=== PATIENT | male | born 1990 | race Caucasian/White ===

== ENCOUNTER 2018-08-20 01:45 | Emergency (ER) | payer MEDICAID, MEDICARE, OTHER, SELFPAY ==
[~2018-08-20] VITALS: Ht 188 cm; Wt 71.9 kg
--- NOTE | 2018-08-20 01:55 | NUR ---
FSBS IN TRIAGE "HI"
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
[2018-08-20] MEDS ORDERED: INSU100V5 SQ-INSULIN (02:10)
[2018-08-20] MEDS ORDERED: INSULIN NPH (02:10)
[2018-08-20] MEDS ORDERED: INSU100V8 SQ (02:10)
--- NOTE | 2018-08-20 02:25 | NUR ---
iv site started, iv fluids infusing Addendum: 08/20/18 at 0225 by LOI provided pt with urine cup, pt stated ' i can't pee right now, i need more fluids"
[2018-08-20 02:30] LABS: BASOPHILS # (AUTO) 0.02 x10^3/uL (0-0.1); BASOPHILS % (AUTO) 0 % (0-1); EOSINOPHILS # (AUTO) 0.06 x10^3/uL (0-0.4); EOSINOPHILS % (AUTO) 1 % (1-7); LYMPHOCYTES # (AUTO) 1.56 x10^3/uL (1-3.4); LYMPHOCYTES % (AUTO) 25 % (22-44); MD NO; MEAN CORPUSCULAR HEMOGLOBIN 31.3 pg (27.5-34.5); MEAN CORPUSCULAR HGB CONC 33.2 g/dL (33.2-36.2); MEAN CORPUSCULAR VOLUME 94.3 fL (81-97); MEAN PLATELET VOLUME 9.2 fL (7.4-10.4); MONOCYTES # (AUTO) 0.38 x10^3/uL (0.2-0.8); MONOCYTES % (AUTO) 6 % (2-9); NEUTROPHILS # (AUTO) 4.18 x10^3/uL (1.8-6.8); NEUTROPHILS % (AUTO) 67 % (42-75); PLATELET COUNT 277 x10^3/uL (130-400); RED BLOOD COUNT 4.74 x10^6/uL (4.38-5.82); RED CELL DISTRIBUTION WIDTH 13.3 % (9.4-14.8)
[2018-08-20] MEDS ORDERED: SODIUM CHLORIDE 0.9% 1,000ML IVBOLUS ONE ×2 (02:30→03:00)
[2018-08-20 02:36] LABS: PH, VENOUS 7.372 pH (7.320-7.420)
[2018-08-20 02:37] LABS: ALANINE AMINOTRANSFERASE 184 U/L (12-78); ALBUMIN 3.5 g/dL (3.4-5.0); ANION GAP 10 mmol/L (5-15); CALCIUM 8.5 mg/dL (8.5-10.1); CHLORIDE 99 mmol/L (98-107); CREATININE 1.15 mg/dL (0.7-1.3)
[2018-08-20 02:39] LABS: ALKALINE PHOSPHATASE 143 U/L (45-117); BILIRUBIN,TOTAL 0.5 mg/dL (0.2-1.0); TOTAL PROTEIN 7.6 g/dL (6.4-8.2)
[2018-08-20] MEDS ORDERED: INSULIN SINGLE DOSE, ER SQ-INSULIN ONE (02:58)
[2018-08-20] MEDS ORDERED: INSULIN REGULAR 100 UNITS/ML, 3ML VIAL IVPush ONE (03:00)
--- NOTE | 2018-08-20 03:02 | NUR ---
pt sitting up on gurney, denies needs, iv fluids infusing, medicate dper mar. monitors in place, call light within reach
[2018-08-20 03:09] LABS: ACETONE, SERUM Trace (10mg/dL) mg/dL (Negative)
[2018-08-20 03:53] VITALS: BP 140/78
--- NOTE | 2018-08-20 04:01 | NUR ---
pt resting on rick, fsbs-[id number], erp updated, monitors in place, call light within reach
--- NOTE | 2018-08-20 04:07 | NUR ---
PROVIDED PT WITH CRACKERS, SNACK
[2018-08-20] MEDS ORDERED: SULFAMETH./TRIMETHOPRIM DS 800MG/160MG TABLET ONE (04:12)
[2018-08-20] MEDS ORDERED: CEPHALEXIN 500 MG CAPSULE ONE (04:12)
--- NOTE | 2018-08-20 05:05 | NUR ---
PER ERP PT OK FOR D/C, DO NOT NEED URINE SAMPLE OR REPEAT BLOOD SUGAR
== END 2018-08-20 05:14 | disposition home or self-care (01) ==
LOC: ED 03:32
DX: E10.65 Type 1 diabetes mellitus with hyperglycemia (principal); F17.200 Nicotine dependence, unspecified, uncomplicated; Z86.19 Personal history of other infectious and parasitic diseases
CPT/HCPCS: 36415; 80053; 82010; 82803; 85025; 96374; 99283; J1815; J7030

== ENCOUNTER 2018-08-21 18:24 | Emergency (ER) | payer MEDICAID, MEDICARE ==
[~2018-08-21] VITALS: Ht 182.9 cm; Wt 69.1 kg
[~2018-08-21 18:24] MED LIST: INSU100V5 SQ-INSULIN; INSU100V8 SQ; INSULIN NPH
--- NOTE | 2018-08-21 19:40 | NUR ---
FSBS DONE, GLUCOMETER READS CARRILLO VAUGHAN AWARE AND LABS ORDERED. PT TAKING PO FLUIDS.
[2018-08-21 21:37] LABS: PH, VENOUS 7.396 pH (7.320-7.420)
[2018-08-21 21:40] LABS: BASOPHILS # (AUTO) 0.04 x10^3/uL (0-0.1); BASOPHILS % (AUTO) 1 % (0-1); EOSINOPHILS # (AUTO) 0.06 x10^3/uL (0-0.4); EOSINOPHILS % (AUTO) 1 % (1-7); LYMPHOCYTES % (AUTO) 22 % (22-44); MD NO; MEAN CORPUSCULAR HEMOGLOBIN 31.4 pg (27.5-34.5); MEAN CORPUSCULAR HGB CONC 33.1 g/dL (33.2-36.2); MEAN CORPUSCULAR VOLUME 94.8 fL (81-97); MEAN PLATELET VOLUME 9.2 fL (7.4-10.4); MONOCYTES # (AUTO) 0.58 x10^3/uL (0.2-0.8); MONOCYTES % (AUTO) 8 % (2-9); NEUTROPHILS # (AUTO) 4.99 x10^3/uL (1.8-6.8); NEUTROPHILS % (AUTO) 69 % (42-75); PLATELET COUNT 285 x10^3/uL (130-400); RED BLOOD COUNT 4.96 x10^6/uL (4.38-5.82); RED CELL DISTRIBUTION WIDTH 13.2 % (9.4-14.8)
[2018-08-21 21:53] LABS: ALANINE AMINOTRANSFERASE 188 U/L (12-78); ANION GAP 9 mmol/L (5-15); CALCIUM 9.1 mg/dL (8.5-10.1); CHLORIDE 92 mmol/L (98-107); CREATININE 1.19 mg/dL (0.7-1.3)
[2018-08-21 21:56] LABS: ALKALINE PHOSPHATASE 162 U/L (45-117); BILIRUBIN,TOTAL 0.9 mg/dL (0.2-1.0); TOTAL PROTEIN 8.2 g/dL (6.4-8.2)
--- NOTE | 2018-08-21 21:57 | NUR ---
NO ANSWER WHEN CALLED FOR REPEAT VS
[2018-08-21 21:59] VITALS: BP 149/97
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
[2018-08-21] MEDS ORDERED: INSULIN SINGLE DOSE, ER SQ-INSULIN ONE (22:30)
[2018-08-21] MEDS ORDERED: SODIUM CHLORIDE 0.9% 1,000ML IVBOLUS ONE (22:30)
[2018-08-21] MEDS ORDERED: INSULIN REGULAR 100 UNITS/ML, 3ML VIAL IV ONE (22:30)
--- NOTE | 2018-08-21 22:35 | NUR ---
PT MEDICATED PER EMAR. JOHANNYN.
--- NOTE | 2018-08-21 23:32 | NUR ---
PT ELOPED AT THIS TIME. PT DID NOT WANT TO WAIT FOR DC PAPERWORK. PT REPORTS HE WANTS SOMETHING AND NEEDS TO BE SOMEWHERE AT THIS TIME. PT ENCOURAGED TO STAY AND WAIT FOR HIS INSULIN. PT REPORTS ILL JUST COME BACK FOR IT LATER. PT SHOWN WAY OUT AND REFUSED TO SIGN AMA AT THIS TIME.
--- NOTE | 2018-08-21 23:34 | NUR ---
PT PULLED OUT PIV AND WAS FOUND IN ROOM.
== END 2018-08-21 23:35 | disposition left against medical advice (07) ==
LOC: ED 21:23
DX: E10.65 Type 1 diabetes mellitus with hyperglycemia (principal); Z72.9 Problem related to lifestyle, unspecified
CPT/HCPCS: 36415; 80053; 82803; 85025; 96374; 99283; J7030

== ENCOUNTER 2018-09-04 23:25 | Emergency (ER) | payer MEDICAID, MEDICARE ==
[~2018-09-04] VITALS: Ht 188 cm; Wt 67.4 kg
[2018-09-05] MEDS ORDERED: SODIUM CHLORIDE 0.9% 1,000ML IVBOLUS ONE (02:00)
[2018-09-05 02:05] LABS: BASOPHILS # (AUTO) 0.05 x10^3/uL (0-0.1); BASOPHILS % (AUTO) 1 % (0-1); EOSINOPHILS # (AUTO) 0.15 x10^3/uL (0-0.4); EOSINOPHILS % (AUTO) 2 % (1-7); LYMPHOCYTES # (AUTO) 2.18 x10^3/uL (1-3.4); LYMPHOCYTES % (AUTO) 23 % (22-44); MD NO; MEAN CORPUSCULAR HEMOGLOBIN 31.1 pg (27.5-34.5); MEAN CORPUSCULAR HGB CONC 33.7 g/dL (33.2-36.2); MEAN CORPUSCULAR VOLUME 92.5 fL (81-97); MONOCYTES # (AUTO) 0.58 x10^3/uL (0.2-0.8); MONOCYTES % (AUTO) 6 % (2-9); NEUTROPHILS # (AUTO) 6.38 x10^3/uL (1.8-6.8); NEUTROPHILS % (AUTO) 68 % (42-75); PLATELET COUNT 290 x10^3/uL (130-400); RED BLOOD COUNT 5.26 x10^6/uL (4.38-5.82)
[2018-09-05 02:17] LABS: ALANINE AMINOTRANSFERASE 185 U/L (12-78); ANION GAP 8 mmol/L (5-15); CALCIUM 9.5 mg/dL (8.5-10.1); CHLORIDE 90 mmol/L (98-107); CREATININE 1.18 mg/dL (0.7-1.3)
[2018-09-05 02:20] LABS: ALKALINE PHOSPHATASE 163 U/L (45-117); BILIRUBIN,TOTAL 0.8 mg/dL (0.2-1.0); TOTAL PROTEIN 8.5 g/dL (6.4-8.2)
[2018-09-05] MEDS ORDERED: INSULIN REGULAR 100 UNITS/ML, 3ML VIAL SQ-INSULIN ONE (02:30)
[2018-09-05] MEDS ORDERED: INSULIN SINGLE DOSE, ER SQ-INSULIN ONE ×2 (02:39→02:41)
[2018-09-05 02:42] LABS: ACETONE, SERUM Moderate(40mg/dL) mg/dL (Negative)
[2018-09-05 04:57] VITALS: BP 121/74
== END 2018-09-05 04:59 | disposition home or self-care (01) ==
LOC: ED 09-05 02:30
DX: E11.65 Type 2 diabetes mellitus with hyperglycemia (principal); E86.0 Dehydration; Z72.9 Problem related to lifestyle, unspecified; F17.200 Nicotine dependence, unspecified, uncomplicated
CPT/HCPCS: 36415; 80053; 82010; 82962; 83690; 85025; 96360; 96372; 99283; J7030

== ENCOUNTER 2018-09-19 19:35 | Inpatient (IN) | payer MEDICARE, MEDICAID ==
[~2018-09-19] VITALS: Ht 180.3 cm; Wt 72.6 kg
[2018-09-23 08:58] VITALS: BP 127/83
== END 2018-09-23 09:20 | disposition home or self-care (01) | DRG 871 ==
LOC: ED 19:51 → 4WST 22:09 → DCLOUNGE 09-23 09:03
PROVIDERS: ADMIT Internal Medicine; ATTEND Internal Medicine
DX: A41.9 Sepsis, unspecified organism (principal); J15.9 Unspecified bacterial pneumonia; J96.01 Acute respiratory failure with hypoxia; J91.8 Pleural effusion in other conditions classified elsewhere; R65.20 Severe sepsis without septic shock; D50.9 Iron deficiency anemia, unspecified; E10.65 Type 1 diabetes mellitus with hyperglycemia; E86.0 Dehydration; F11.90 Opioid use, unspecified, uncomplicated; F15.90 Other stimulant use, unspecified, uncomplicated; Z59.0 Homelessness; Z88.1 Allergy status to other antibiotic agents; Z88.8 Allergy status to other drugs, medicaments and biological substances; Z91.19 Patient's noncompliance with other medical treatment and regimen; Z72.0 Tobacco use; Z71.6 Tobacco abuse counseling
CPT/HCPCS: 36415; 71046; 80048; 80053; 80076; 80307; 82962; 83036; 83605; 84145; 85025; 87040; 87070; 87184; 87205; 93005; 96374; G0378; J1650; J1956; J1815; J7030

== ENCOUNTER 2019-01-31 04:15 | Emergency (ER) | payer MEDICARE, MEDICAID ==
[~2019-01-31] VITALS: Ht 188 cm; Wt 75.0 kg
[~2019-01-31 04:15] MED LIST changes: +LEVO500T47 PO
[2019-01-31] MEDS ORDERED: SODIUM CHLORIDE FLUSH 10ML SYR IVF ONE (05:30)
[2019-01-31] MEDS ORDERED: MEROPENEM 1 GM in SODIUM CHLORIDE 0.9% 100 ML IVPB ONE (05:30)
[2019-01-31] MEDS ORDERED: DIPH,PERTUSS(ACELL),TET VAC/PF 0.5 ML IM-VACC ONE ×2 (05:30→05:36)
[2019-01-31 06:12] LABS: BASOPHILS # (AUTO) 0.03 x10^3/uL (0-0.1); BASOPHILS % (AUTO) 0 % (0-1); EOSINOPHILS # (AUTO) 0.16 x10^3/uL (0-0.4); EOSINOPHILS % (AUTO) 1 % (1-7); LYMPHOCYTES % (AUTO) 16 % (22-44); MD NO; MEAN CORPUSCULAR HEMOGLOBIN 31.7 pg (27.5-34.5); MEAN CORPUSCULAR HGB CONC 33.3 g/dL (33.2-36.2); MEAN CORPUSCULAR VOLUME 95.1 fL (81-97); MEAN PLATELET VOLUME 9.4 fL (7.4-10.4); MONOCYTES # (AUTO) 0.66 x10^3/uL (0.2-0.8); MONOCYTES % (AUTO) 6 % (2-9); NEUTROPHILS # (AUTO) 8.92 x10^3/uL (1.8-6.8); NEUTROPHILS % (AUTO) 77 % (42-75); PLATELET COUNT 279 x10^3/uL (130-400); RED BLOOD COUNT 4.51 x10^6/uL (4.38-5.82)
[2019-01-31 06:34] LABS: ANION GAP 6 mmol/L (5-15); CALCIUM 8.7 mg/dL (8.5-10.1); CHLORIDE 102 mmol/L (98-107)
[2019-01-31 06:39] LABS: ALANINE AMINOTRANSFERASE 108 U/L (12-78); ALKALINE PHOSPHATASE 115 U/L (45-117); BILIRUBIN,TOTAL 0.7 mg/dL (0.2-1.0); CREATININE 0.93 mg/dL (0.7-1.3); TOTAL PROTEIN 7.3 g/dL (6.4-8.2)
--- NOTE | 2019-01-31 06:55 | NUR ---
CRITICAL LAB. NOTIFIED PHYSICIAN PCT 11.35.
[2019-01-31] MEDS ORDERED: SODIUM CHLORIDE 0.9% 1,000 ML IV ONE (07:01)
[2019-01-31] MEDS ORDERED: VANCOMYCIN PER PHARMACY MC PRN (07:30)
[2019-01-31] MEDS ORDERED: SODIUM CHLORIDE FLUSH 10ML SYR IVF PRN (07:30)
[2019-01-31] MEDS ORDERED: SODIUM CHLORIDE 0.9% 1,000 ML IV SCH (07:36)
[2019-01-31 07:52] LABS: ACETONE, SERUM Small (20mg/dL) mg/dL (Negative)
--- NOTE | 2019-01-31 07:53 | NUR ---
LATE NOTE ENTRY DUE TO PT CARE. Received report from ALFRED Weinberg. Assuming care of pt.
--- NOTE | 2019-01-31 07:53 | NUR ---
Pt ambulating in room with steady gait and balance. Pt agitated asking EDRN for a spoon for his milk and cereal. Pt states, "I have been asking people for hours. I am hungry." Pt aware of need of UA. Pt states, "I can't pee, it just started happening." Pt refusing straight cath. Wound culture and sputum culture obtained per hospitalist verbal request. Pt attempting to urinate at bedside. NADN. No other needs requested.
[2019-01-31] MEDS ORDERED: NICOTINE 14MG/24 HR PATCH.TD24 TD SCH (08:00)
[2019-01-31] MEDS ORDERED: morphine SULFATE 10 MG/ML, 1ML IVPush PRN (08:00)
[2019-01-31] MEDS ORDERED: ACETAMINOPHEN 325 MG TABLET PO PRN (08:00)
[2019-01-31] MEDS ORDERED: ENOXAPARIN 40 MG/0.4 ML SQ SCH (08:00)
[2019-01-31 08:01] LABS: HCT (SEDRATE) 42.9 % (39.2-51.8)
[2019-01-31 08:02] VITALS: BP 124/72
[2019-01-31 08:10] LABS: TROPONIN I < 0.015 ng/mL (0.000-0.045)
--- NOTE | 2019-01-31 08:14 | NUR ---
Attempted to call and provide report. RN to call ED when ready.
[2019-01-31 08:43] LABS: MICROSCOPIC NOT IND
[2019-01-31 08:52] LABS: CULTURE INDICATED? NO
--- NOTE | 2019-01-31 08:53 | NUR ---
Attempting to call for report. No answer to floor when calling.
[2019-01-31 08:55] LABS: AMPHETAMINE SCREEN, URINE Positive (Negative); BARBITURATE SCREEN, URINE Negative (Negative); BENZODIAZEPINE SCREEN, URINE Negative (Negative); CANNABINOID SCREEN, URINE Negative (Negative); COCAINE SCREEN, URINE Negative (Negative); METHADONE SCREEN, URINE Negative (Negative); OPIATE SCREEN, URINE Positive (Negative)
[2019-01-31] MEDS ORDERED: INSULIN GLARGINE 100 UNITS/ML, PEN SQ-INSULIN SCH (09:00)
--- NOTE | 2019-01-31 09:00 | NUR ---
Attempted to give report to ALFRED Keith. Placed on hold for 5 min. Calling cork tile floor layer per auditor in charge to provide report.
--- NOTE | 2019-01-31 09:06 | NUR ---
Provided report to ALFRED Ortega elevator constructor supervisor. All questions answered. Pt ready to transfer to floor from ED. NADN. No needs expressed.
--- NOTE | 2019-01-31 09:29 | NUR ---
Went to pt room to transport from ED to floor. PT not in room. PIV found with tip intact on floor of room. Saline bag spilling on floor. All pt belongings not present in room. Floor notified of pt elopement.
--- NOTE | 2019-01-31 09:31 | NUR ---
Dr. John notified of pt elopement by phone.
[2019-01-31] MEDS ORDERED: INSULIN LISPRO 100 UNITS/ML, PEN SQ-INSULIN SCH (11:00)
[2019-02-01] MEDS ORDERED: PHARMACOKINETIC MONITORING MC PRN (00:30)
[2019-02-05] MEDS ORDERED: SODIUM CHLORIDE FLUSH 10ML SYR IVF PRN (14:00)
== END 2019-01-31 09:29 | disposition left against medical advice (07) ==
LOC: ED 05:15 → EDIP 07:05 → UNDOADMIN 07:05 → ED 09:29
DX: J15.9 Unspecified bacterial pneumonia (principal); F11.14 Opioid abuse with opioid-induced mood disorder; A49.01 Methicillin susceptible Staphylococcus aureus infection, unspecified site; E10.69 Type 1 diabetes mellitus with other specified complication; Z79.4 Long term (current) use of insulin; R00.0 Tachycardia, unspecified; Z03.89 Encounter for observation for other suspected diseases and conditions ruled out; F17.200 Nicotine dependence, unspecified, uncomplicated; Z72.89 Other problems related to lifestyle
CPT/HCPCS: 36415; 71045; 80053; 80074; 80307; 81003; 82010; 82800; 83036; 83605; 84145; 84484; 85025; 85651; 86140; 87040; 87070; 87077; 87147; 87186; 87205; 87521; 90471; 90715; 93005; 96361; 96365; 99284; J2185; J7030

== ENCOUNTER 2019-02-08 16:11 | Emergency (ER) | payer MEDICARE, MEDICAID ==
[~2019-02-08] VITALS: Ht 188 cm; Wt 74.0 kg
[2019-02-08 17:05] LABS: PH, VENOUS 7.409 pH (7.320-7.420)
--- NOTE | 2019-02-08 17:07 | NUR ---
WOUNDS RIGHT ARM WITH A RED STREAK ON INNER ASPECT OF ARM, WOUNDS LEFT ARM, CHEST, NECK, BILATERAL LEGS, FEET.
[2019-02-08 17:10] LABS: BASOPHILS # (AUTO) 0.05 x10^3/uL (0-0.1); BASOPHILS % (AUTO) 0 % (0-1); EOSINOPHILS # (AUTO) 0.24 x10^3/uL (0-0.4); EOSINOPHILS % (AUTO) 2 % (1-7); LYMPHOCYTES # (AUTO) 1.38 x10^3/uL (1-3.4); LYMPHOCYTES % (AUTO) 9 % (22-44); MD NO; MEAN CORPUSCULAR HEMOGLOBIN 31.1 pg (27.5-34.5); MEAN CORPUSCULAR HGB CONC 32.7 g/dL (33.2-36.2); MEAN PLATELET VOLUME 8.6 fL (7.4-10.4); MONOCYTES # (AUTO) 0.68 x10^3/uL (0.2-0.8); MONOCYTES % (AUTO) 4 % (2-9); NEUTROPHILS % (AUTO) 85 % (42-75); PLATELET COUNT 345 x10^3/uL (130-400); RED BLOOD COUNT 5.14 x10^6/uL (4.38-5.82); RED CELL DISTRIBUTION WIDTH 13.1 % (9.4-14.8)
[2019-02-08 17:21] LABS: ALANINE AMINOTRANSFERASE 145 U/L (12-78); ALBUMIN 3.2 g/dL (3.4-5.0); ANION GAP 6 mmol/L (5-15); CHLORIDE 101 mmol/L (98-107); CREATININE 0.92 mg/dL (0.7-1.3)
[2019-02-08 17:23] LABS: ALKALINE PHOSPHATASE 134 U/L (45-117); BILIRUBIN,TOTAL 0.8 mg/dL (0.2-1.0); TOTAL PROTEIN 8.1 g/dL (6.4-8.2)
[2019-02-08 17:40] LABS: ACETONE, SERUM Negative (Negative)
--- NOTE | 2019-02-08 18:08 | NUR ---
LYING IN GURNEY, FIDGETY. AWAITING DISPO
[2019-02-08] MEDS ORDERED: SULFAMETH./TRIMETHOPRIM DS 800MG/160MG TABLET PO ONE (19:00)
--- NOTE | 2019-02-08 19:02 | NUR ---
REPORT TO MICHAEL SIMON
[2019-02-08] MEDS ORDERED: SULFAMETH./TRIMETHOPRIM DS 800MG/160MG TABLET ONE (19:20)
[2019-02-08 19:23] VITALS: BP 141/75
--- NOTE | 2019-02-08 19:26 | NUR ---
Received report and assumed patient care. RN to bedside with medications (see electronic medicine administration record.) Patient stating he needs iv antibiotics. Attempted to educate patient on blood infections but patient just spoke over RN.
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
== END 2019-02-08 20:08 | disposition home or self-care (01) ==
LOC: ED 20:02
DX: L03.113 Cellulitis of right upper limb (principal); L03.114 Cellulitis of left upper limb; L03.116 Cellulitis of left lower limb; L03.115 Cellulitis of right lower limb; F11.10 Opioid abuse, uncomplicated; E11.9 Type 2 diabetes mellitus without complications; F15.10 Other stimulant abuse, uncomplicated; Z72.89 Other problems related to lifestyle; Z88.6 Allergy status to analgesic agent
CPT/HCPCS: 36415; 71046; 80053; 82010; 82803; 83605; 84145; 85025; 87040; 99284

== ENCOUNTER 2019-03-01 03:26 | Emergency (ER) | payer MEDICARE, MEDICAID ==
[~2019-03-01] VITALS: Ht 185.4 cm; Wt 70.2 kg
[2019-03-01] MEDS ORDERED: LIDOCAINE 1%-EPI 1:100K, 20ML ONE (03:52)
[2019-03-01] MEDS ORDERED: SODIUM CHLORIDE 0.9% 1,000ML IVBOLUS ONE (04:00)
[2019-03-01] MEDS ORDERED: SODIUM CHLORIDE FLUSH 10ML SYR IVF ONE (04:00)
[2019-03-01] MEDS ORDERED: LIDOCAINE 1%-EPI 1:100K, 20ML INFIL ONE (04:00)
[2019-03-01 04:02] LABS: BASOPHILS # (AUTO) 0.05 x10^3/uL (0-0.1); BASOPHILS % (AUTO) 1 % (0-1); EOSINOPHILS # (AUTO) 0.15 x10^3/uL (0-0.4); EOSINOPHILS % (AUTO) 3 % (1-7); LYMPHOCYTES # (AUTO) 1.63 x10^3/uL (1-3.4); LYMPHOCYTES % (AUTO) 27 % (22-44); MD NO; MEAN CORPUSCULAR HEMOGLOBIN 30.5 pg (27.5-34.5); MEAN CORPUSCULAR HGB CONC 33.1 g/dL (33.2-36.2); MEAN CORPUSCULAR VOLUME 92.2 fL (81-97); MEAN PLATELET VOLUME 9.1 fL (7.4-10.4); MONOCYTES % (AUTO) 10 % (2-9); NEUTROPHILS # (AUTO) 3.72 x10^3/uL (1.8-6.8); NEUTROPHILS % (AUTO) 61 % (42-75); PLATELET COUNT 285 x10^3/uL (130-400); RED BLOOD COUNT 4.74 x10^6/uL (4.38-5.82); RED CELL DISTRIBUTION WIDTH 13.4 % (9.4-14.8)
[2019-03-01 04:14] LABS: ALANINE AMINOTRANSFERASE 208 U/L (12-78); ALBUMIN 3.5 g/dL (3.4-5.0); ANION GAP 6 mmol/L (5-15); CHLORIDE 97 mmol/L (98-107); CREATININE 1.13 mg/dL (0.7-1.3)
[2019-03-01 04:16] LABS: ALKALINE PHOSPHATASE 152 U/L (45-117); BILIRUBIN,TOTAL 0.7 mg/dL (0.2-1.0); TOTAL PROTEIN 8.4 g/dL (6.4-8.2)
[2019-03-01 04:22] LABS: ACETONE, SERUM Trace (10mg/dL) mg/dL (Negative)
--- NOTE | 2019-03-01 04:25 | NUR ---
PT C/O LEFT WRIST ABCESS AND HIGH BLOOD SUGAR. PT REPORTS RUNNING OUT OF INSULIN EARLIER TODAY. REPORTS SKIN POPPING HEROIN. PT DENIES ANY OTHER C/O AT THIS TIME. PT CONNECTED TO ALL MONITORING, CALL LIGHT WITHIN REACH, ALL SAFETY MEASURES IN PLACE.
[2019-03-01] MEDS ORDERED: CLINDAMYCIN 300 MG CAPSULE PO ONE (04:30)
[2019-03-01] MEDS ORDERED: INSULIN LISPRO SINGLE DOSE, ER SQ-INSULIN ONE ×2 (04:36→05:58)
[2019-03-01] MEDS ORDERED: CLINDAMYCIN 300 MG CAPSULE ONE (04:36)
[2019-03-01 05:47] VITALS: BP 131/90
--- NOTE | 2019-03-01 05:53 | NUR ---
PT RESTING ON GURNEY WITH EYES CLOSED. RESPIRATIONS EVEN AND NONLABORED.
[2019-03-01] MEDS ORDERED: INSULIN REGULAR 100 UNITS/ML, 3ML VIAL SQ-INSULIN SCH (06:00)
[2019-03-01] MEDS ORDERED: INSULIN LISPRO 100 UNIT/ML, 3ML VIAL SQ-INSULIN SCH (06:30)
--- NOTE | 2019-03-01 06:52 | NUR ---
received bedside report FROM ALFRED PATEL. PT RESTING ON GURNEY. PT REFUSING VS AND PIV PER REPORT. PT DRINIKING WATER BEDSIDE.
[2019-03-01] MEDS ORDERED: INSULIN LISPRO 100 UNIT/ML, 3ML VIAL SQ-INSULIN ONE (07:00)
--- NOTE | 2019-03-01 07:39 | NUR ---
PT CONTINUES TO SLEEP INTERMITTENTLY ON GURNEY. BG. FSBS 123
--- NOTE | 2019-03-01 07:54 | NUR ---
Patient/Caregiver given discharge instructions and they have confirmed that they understand the instructions. Patient ambulatory with steady gait. PT LEFT WITH ALL PERSONAL BELONGINGS.
== END 2019-03-01 07:57 | disposition home or self-care (01) ==
LOC: ED 07:46
DX: L02.414 Cutaneous abscess of left upper limb (principal); R73.9 Hyperglycemia, unspecified; F17.210 Nicotine dependence, cigarettes, uncomplicated; Z76.0 Encounter for issue of repeat prescription
CPT/HCPCS: 10060; 36415; 80053; 82010; 82962; 85025; 96372; 99283; J3490

== ENCOUNTER 2019-07-06 07:54 | Emergency (ER) | payer MEDICARE, MEDICAID ==
[~2019-07-06] VITALS: Ht 188 cm; Wt 90.6 kg
[2019-07-06 07:58] VITALS: BP 139/79
--- NOTE | 2019-07-06 08:14 | NUR ---
SHAMEKA HARDY AT [facility] FOR ASSESSMENT.
--- NOTE | 2019-07-06 08:54 | NUR ---
PT GIVEN D/C INSTRUCTIONS, VERBALIZED UNDERSTANDING. HAS ALL OWN BELONGINGS UPON D/C.
== END 2019-07-06 08:56 | disposition home or self-care (01) ==
LOC: ED 08:29
DX: R56.9 Unspecified convulsions (principal); F32.9 Major depressive disorder, single episode, unspecified; F41.9 Anxiety disorder, unspecified; Z76.0 Encounter for issue of repeat prescription
CPT/HCPCS: 99281

== ENCOUNTER 2019-07-28 20:08 | Emergency (ER) | payer MEDICARE, MEDICAID ==
[~2019-07-28] VITALS: Ht 188 cm; Wt 89.5 kg
[2019-07-28 20:11] VITALS: BP 160/93
== END 2019-07-28 20:52 | disposition home or self-care (01) ==
LOC: ED 20:35
DX: E10.9 Type 1 diabetes mellitus without complications (principal); Z76.0 Encounter for issue of repeat prescription
CPT/HCPCS: 99281

== ENCOUNTER 2019-08-31 14:19 | Emergency (ER) | payer MEDICARE, MEDICAID ==
[~2019-08-31] VITALS: Ht 188 cm; Wt 88.1 kg
[2019-08-31 14:22] VITALS: BP 131/88
--- NOTE | 2019-08-31 14:39 | NUR ---
BROKE HANDLER: PT WALKED BACK FROM LOBBY TO ROOM AT THIS TIME. STEADY UPON AMBULATION. NO ACUTE DISTRESS NOTED AT THIS TIME.
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
--- NOTE | 2019-08-31 15:01 | NUR ---
PT UPRIGHT ON GURNEY WITH EYES CLOSED, RESPONDS APPROP TO STAFF, NAD AT REST, NO NEEDS AT THIS TIME, CALL LIGHT WITHIN REACH.
--- NOTE | 2019-08-31 15:27 | NUR ---
PT TO XR
[2019-08-31] MEDS ORDERED: IBUPROFEN 200 MG TABLET PO ONE (15:30)
--- NOTE | 2019-08-31 15:39 | NUR ---
PT RETURNED ROM XR
[2019-08-31] MEDS ORDERED: IBUPROFEN 200 MG TABLET ONE (15:48)
--- NOTE | 2019-08-31 16:29 | NUR ---
Patient given discharge instructions and they have confirmed that they understand the instructions. Patient ambulatory with steady gait.
== END 2019-08-31 16:49 | disposition home or self-care (01) ==
LOC: ED 16:12
DX: S93.492A Sprain of other ligament of left ankle, initial encounter (principal); R07.89 Other chest pain; E11.9 Type 2 diabetes mellitus without complications; X58.XXXA Exposure to other specified factors, initial encounter; Y93.89 Activity, other specified; Y92.89 Other specified places as the place of occurrence of the external cause; Y99.8 Other external cause status
CPT/HCPCS: 71046; 99284

== ENCOUNTER 2019-10-28 06:52 | Emergency (ER) | payer MEDICARE, MEDICAID ==
[~2019-10-28] VITALS: Ht 188 cm; Wt 70.6 kg
[2019-10-28] MEDS ORDERED: SODIUM CHLORIDE 0.9% 1,000ML IVBOLUS ONE (08:00)
[2019-10-28] MEDS ORDERED: SODIUM CHLORIDE FLUSH 10ML SYR IVF ONE (08:00)
--- NOTE | 2019-10-28 08:23 | NUR ---
TASK RN: PIV INITIATED AND IVF STARTED.
--- NOTE | 2019-10-28 08:36 | NUR ---
task rn was unable to obtain blood with piv initiation. after multiple needle sticks, this pt is refusing any further lab draws from rn and from medical lab director.
--- NOTE | 2019-10-28 09:17 | NUR ---
PT WILL ALLOW FOR BLOOD SAMPLING AT THIS TIME. PHLEBOTOMY IS AT THE BEDSIDE FOR BLOOD DRAW.
[2019-10-28 09:52] LABS: BASOPHILS # (AUTO) 0.01 x10^3/uL (0-0.1); BASOPHILS % (AUTO) 0 % (0-1); EOSINOPHILS # (AUTO) 0.07 x10^3/uL (0-0.4); EOSINOPHILS % (AUTO) 1 % (1-7); LYMPHOCYTES % (AUTO) 22 % (22-44); MD NO; MEAN CORPUSCULAR HEMOGLOBIN 30.5 pg (27.5-34.5); MEAN CORPUSCULAR HGB CONC 32.7 g/dL (33.2-36.2); MEAN CORPUSCULAR VOLUME 93.3 fL (81-97); MEAN PLATELET VOLUME 9.1 fL (7.4-10.4); MONOCYTES % (AUTO) 11 % (2-9); NEUTROPHILS # (AUTO) 3.64 x10^3/uL (1.8-6.8); NEUTROPHILS % (AUTO) 66 % (42-75); PLATELET COUNT 258 x10^3/uL (130-400); RED BLOOD COUNT 5.26 x10^6/uL (4.38-5.82); RED CELL DISTRIBUTION WIDTH 13.4 % (9.4-14.8)
[2019-10-28 10:01] LABS: ALANINE AMINOTRANSFERASE 201 U/L (12-78); ALBUMIN 3.7 g/dL (3.4-5.0); ANION GAP 8 mmol/L (5-15); CALCIUM 9.1 mg/dL (8.5-10.1); CHLORIDE 94 mmol/L (98-107); CREATININE 1.02 mg/dL (0.7-1.3)
[2019-10-28 10:03] LABS: ALKALINE PHOSPHATASE 149 U/L (45-117); BILIRUBIN,TOTAL 0.9 mg/dL (0.2-1.0); TOTAL PROTEIN 8.3 g/dL (6.4-8.2)
--- NOTE | 2019-10-28 10:04 | NUR ---
BECCA (RN) IS ASSSUMING CARE OF THIS PT AT THIS TIME. SBAR WAS EXCHANGED AT THE BEDSIDE.
--- NOTE | 2019-10-28 10:15 | NUR ---
Thompson coats in [facility] - 10/28/19 at 1016 by DESIREE ASSUMED CARE OF PT AT THIS TIME, VSS, NO NEEDS AT THIS TIME.
[2019-10-28 10:17] LABS: ACETONE, SERUM Trace (Negative)
[2019-10-28 10:21] VITALS: BP 137/96
--- NOTE | 2019-10-28 10:22 | NUR ---
ASSUMED CARE OF PT AT THIS TIME, VSS, NO NEEDS AT THIS TIME. AWAITING LABS
[2019-10-28] MEDS ORDERED: INSULIN SINGLE DOSE, ER ONE (10:55)
[2019-10-28] MEDS ORDERED: INSULIN REGULAR 100 UNITS/ML, 3ML VIAL SQ-INSULIN ONE (11:00)
--- NOTE | 2019-10-28 11:02 | NUR ---
PT MEDICATED WITH INSULIN, SPRITE GIVEN, WILL PLAN ON D/C
== END 2019-10-28 11:27 | disposition home or self-care (01) ==
LOC: ED 08:12
DX: E10.65 Type 1 diabetes mellitus with hyperglycemia (principal); Z76.0 Encounter for issue of repeat prescription; R94.5 Abnormal results of liver function studies; Z79.4 Long term (current) use of insulin
CPT/HCPCS: 36415; 80053; 82010; 82803; 82962; 83930; 85025; 96360; 99283; J1815; J7030

== ENCOUNTER 2019-10-30 06:28 | Emergency (ER) | payer MEDICARE, MEDICAID ==
[~2019-10-30] VITALS: Ht 190.5 cm; Wt 65.0 kg
--- NOTE | 2019-10-30 06:57 | NUR ---
FSBS 479. ERP UPDATED. REPORT TO SERGEI SIMONCAMP GUARD OF CARE AT THIS TIME
[2019-10-30] MEDS ORDERED: INSULIN GLARGINE 100 UNITS/ML, PEN SQ-INSULIN SCH (07:00)
--- NOTE | 2019-10-30 07:55 | NUR ---
MEDS ADMINISTERED AR APR.
[2019-10-30 08:04] VITALS: BP 160/94
--- NOTE | 2019-10-30 08:21 | NUR ---
BLOOD SUGAR REASSESSED: 492
[2019-10-30] MEDS ORDERED: INSULIN LISPRO SINGLE DOSE, ER SQ-INSULIN ONE (08:29)
[2019-10-30] MEDS ORDERED: INSULIN REGULAR 100 UNITS/ML, 3ML VIAL SQ-INSULIN ONE (08:30)
--- NOTE | 2019-10-30 09:20 | NUR ---
BS 387 AFTER HUMALOG GIVEN. PT HAD EATEN CEREAL BEFORE BLOOD SUGAR CHECKED
== END 2019-10-30 09:27 | disposition home or self-care (01) ==
LOC: ED 09:15
DX: E11.65 Type 2 diabetes mellitus with hyperglycemia (principal); R35.8 Other polyuria
CPT/HCPCS: 82962; 99283; J1815

== ENCOUNTER 2019-11-06 13:12 | Emergency (ER) | payer MEDICARE, MEDICAID ==
[~2019-11-06] VITALS: Ht 188 cm; Wt 82.0 kg
[2019-11-06 13:14] VITALS: BP 120/80
[2019-11-06] MEDS ORDERED: LIDOCAINE-MPF 1%, 2ML ONE (13:20)
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
[2019-11-06] MEDS ORDERED: LIDOCAINE 1%-EPI 1:100K, 20ML SQ ONE (13:30)
--- NOTE | 2019-11-06 13:50 | NUR ---
Pt wound dressed with abd pad. Pt provided with packing and wound dressing for at home.
--- NOTE | 2019-11-06 14:06 | NUR ---
Patient/Caregiver given discharge instructions and they have confirmed that they understand the instructions. Patient ambulatory with steady gait. Pt left with [employer] sitter in taxi.
== END 2019-11-06 14:08 | disposition home or self-care (01) ==
LOC: ED 13:55
DX: L02.416 Cutaneous abscess of left lower limb (principal); E11.9 Type 2 diabetes mellitus without complications
CPT/HCPCS: 10060; 99284

== ENCOUNTER 2020-09-16 01:54 | Emergency (ER) | payer MEDICARE, MEDICAID ==
[~2020-09-16] VITALS: Ht 188 cm; Wt 82.1 kg
[2020-09-16 01:57] VITALS: BP 128/73
--- NOTE | 2020-09-16 03:33 | NUR ---
NIL X 1 @ [id number]
--- NOTE | 2020-09-16 03:33 | NUR ---
NILX2 @ 0339
--- NOTE | 2020-09-16 03:47 | NUR ---
NIL X 3 @ [id number]
== END 2020-09-16 03:49 | disposition left against medical advice (07) ==
LOC: ED 03:43
DX: M79.601 Pain in right arm (principal); Z53.21 Procedure and treatment not carried out due to patient leaving prior to being seen by health care provider

== ENCOUNTER 2020-09-16 18:03 | Emergency (ER) | payer MEDICARE, MEDICAID ==
[~2020-09-16] VITALS: Ht 188 cm; Wt 83.8 kg
--- NOTE | 2020-09-16 18:49 | NUR ---
PT C/O OF RIGHT FOREARM ABSCESS. PT FA APPEARS SWOLLEN AND DISCOLORED. STATES HE WAS HERE LAST NIGHT BUT IT WAS TAKING TOO LONG SO HE LEFT. ATTACHED TO MONITORS. VSS. NADN. DENIES FEVER/CHILL, AND N/V/D. BED IN LOW. RAILS ENGAGED. CALL LIGHT ON LAP. GF AT BEDSIDE. JENATM
[2020-09-16] MEDS ORDERED: LIDOCAINE 1%, 10ML INFIL ONE (19:30)
--- NOTE | 2020-09-16 19:33 | NUR ---
Patient is resting comfortably in bed. Bed in lowest, rails engaged, call light on lap. Vital Signs within normal limits. WCTM.
[2020-09-16] MEDS ORDERED: LIDOCAINE-MPF 1%, 5ML ONE (19:48)
[2020-09-16] MEDS ORDERED: IBUPROFEN 600 MG TABLET ONE (20:11)
[2020-09-16] MEDS ORDERED: CEPHALEXIN 500 MG CAPSULE ONE (20:11)
[2020-09-16] MEDS ORDERED: SULFAMETH./TRIMETHOPRIM DS 800MG/160MG TABLET ONE (20:11)
[2020-09-16 20:15] VITALS: BP 130/73
[2020-09-16] MEDS ORDERED: IBUPROFEN 600 MG TABLET PO ONE (20:30)
[2020-09-16] MEDS ORDERED: CEPHALEXIN 500 MG CAPSULE PO ONE (20:30)
[2020-09-16] MEDS ORDERED: SULFAMETH./TRIMETHOPRIM DS 800MG/160MG TABLET PO ONE (20:30)
== END 2020-09-16 20:38 | disposition home or self-care (01) ==
LOC: ED 18:54
DX: L03.114 Cellulitis of left upper limb (principal); L02.414 Cutaneous abscess of left upper limb; E11.9 Type 2 diabetes mellitus without complications
CPT/HCPCS: 10060

== ENCOUNTER 2020-09-19 22:43 | Emergency (ER) | payer MEDICARE, MEDICAID ==
[~2020-09-19] VITALS: Ht 188 cm; Wt 80.6 kg
[2020-09-19 22:49] VITALS: BP 137/80
--- NOTE | 2020-09-19 23:25 | NUR ---
PT LEFT ED AMA. AMA PAPERWORK SIGNED BY PT, VERBALIZED UNDERSTANDING OF RISKS OF LEAVING. PT AMBULATORY WITH STEADY GAIT.
== END 2020-09-19 23:27 | disposition left against medical advice (07) ==
LOC: ED 23:10
DX: L02.413 Cutaneous abscess of right upper limb (principal); Z53.21 Procedure and treatment not carried out due to patient leaving prior to being seen by health care provider